=== PATIENT | female | born 1965 | race Caucasian/White ===

== ENCOUNTER 2017-09-16 06:51 | Observation (INO) | payer BC ==
[2017-09-12 15:30] VITALS: BP 123/82
[2017-09-12 15:41] LABS: BASOPHILS % (AUTO) 0.6 % (0.0-5.0); EOSINOPHILS % (AUTO) 1.4 % (0.0-8.0); HEMATOCRIT 42.5 % (36-48); LYMPHOCYTES % (AUTO) 34.5 % (21.0-51.0); MEAN CORPUSCULAR HEMOGLOBIN 30.2 pg (27.0-33.0); MEAN CORPUSCULAR HGB CONC 34.6 g/dL (32.0-36.0); MEAN CORPUSCULAR VOLUME 87.1 fL (79-99); MONOCYTES % (AUTO) 4.8 % (3.0-13.0); NEUTROPHILS % (AUTO) 58.7 % (40.0-77.0); PLATELET COUNT (AUTO) 262 K/uL (130-400); RED BLOOD CELL COUNT(AUTO) 4.88 MIL/uL (4.00-5.50); RED CELL DISTRIBUTION WIDTH 13.2 % (11.0-15.5); WHITE BLOOD COUNT (AUTO) 8.3 K/uL (4.8-10.8)
[2017-09-16] VITALS (23 sets, daily range): BP systolic 100–139; BP diastolic 54–77
[~2017-09-16] VITALS: Ht 171.4 cm; Wt 77.5 kg
[~2017-09-16 06:51] MED LIST: BENEFIBER PO; MULTIVITAMINS PO
[2017-09-16] MEDS: CEFAZOLIN SODIUM 1 GM VIAL IVP ONE ×2 (07:58→09:15)
[2017-09-16] MEDS ORDERED: WATER FOR INJECTION,STERILE 20 ML VIAL IJ ONE (08:00)
[2017-09-16] MEDS ORDERED: LACTATED RINGERS 1000ML 1,000 ML IV SCH (08:00)
[2017-09-16] MEDS ORDERED: LIDOCAINE PF 2% 5ML ABBOJECT ONE ×2 (08:02→10:13)
[2017-09-16] MEDS ORDERED: ONDANSETRON HCL 4 MG/2 ML VIAL ONE ×2 (08:02→10:12)
[2017-09-16] MEDS ORDERED: PROPOFOL 10 MG/ML 20ML VIAL IV ONE (08:02)
[2017-09-16] MEDS ORDERED: DEXAMETHASONE SOD PHOSPHATE 10MG/ML 1ML VIAL ONE ×2 (08:02→10:12)
[2017-09-16] MEDS ORDERED: FENTANYL CITRATE PF 50 MCG/1 ML 2ML VIAL ONE (08:03)
[2017-09-16] MEDS ORDERED: FENTANYL CITRATE PF 50 MCG/1 ML 5ML AMP IV ONE (09:23)
[2017-09-16] MEDS ORDERED: LIDOCAINE HCL MPF 1% 5ML VIAL ONE (10:12)
[2017-09-16] MEDS ORDERED: NEOSTIGMINE METHYLSULFATE 1MG/ML IV ONE (10:12)
[2017-09-16] MEDS ORDERED: ROCURONIUM BROMIDE 10MG/1ML 5ML VL ONE (10:13)
[2017-09-16] MEDS ORDERED: LIDOCAINE HCL 2% JELLY 5 ML ONE (10:13)
[2017-09-16] MEDS ORDERED: GLYCOPYRROLATE 0.2 MG/ML 5 ML VIAL ONE (10:13)
[2017-09-16] MEDS ORDERED: LIDOCAINE HCL 4% LTA SOL 4 ML VIAL ONE (10:13)
[2017-09-16] MEDS ORDERED: MEPERIDINE-PF 25 MG/ML SYG ONE (10:39)
[2017-09-16] MEDS ORDERED: SIMETHICONE 80 MG TAB.CHEW PO PRN ×3 (12:00→17:00)
[2017-09-16] MEDS ORDERED: IBUPROFEN 600 MG TABLET PO PRN (12:00)
[2017-09-16] MEDS ORDERED: MEPERIDINE-PF 75 MG/ML SYG IM PRN (12:00)
[2017-09-16] MEDS ORDERED: DOCUSATE SODIUM 100 MG CAP PO PRN ×2 (12:00→12:30)
[2017-09-16] MEDS ORDERED: BISACODYL 10 MG SUPP.RECT RC PRN ×2 (12:00→12:30)
[2017-09-16] MEDS ORDERED: DEXTROSE 5 %-0.45 % NACL 1,000 ML IV SCH (12:00)
[2017-09-16] MEDS ORDERED: PROMETHAZINE HCL 25 MG/ML 1ML AMPULE IM PRN ×3 (12:00→12:30)
[2017-09-16] MEDS ORDERED: ACETAMINOPHEN-CODEINE 300/30MG TAB PO PRN (12:30)
[2017-09-16] MEDS: DEXTROSE 5 %-0.45 % NACL 1,000 ML IV SCH ×2 (13:55→20:48)
[2017-09-16] MEDS ORDERED: PHENAZOPYRIDINE HCL 200 MG TABLET PO SCH (14:00)
[2017-09-16] MEDS: IBUPROFEN 600 MG TABLET PO PRN (16:48)
[2017-09-16] MEDS ORDERED: NITROFURANTOIN MONOHYD/M-CRYST 100 MG CAPSULE PO SCH (21:00)
[2017-09-17 00:12] VITALS: BP 134/73
[2017-09-17] MEDS: IBUPROFEN 600 MG TABLET PO PRN ×2 (02:40→08:51)
[2017-09-17 04:54] VITALS: BP 137/69
[2017-09-17] MEDS: DEXTROSE 5 %-0.45 % NACL 1,000 ML IV SCH ×2 (05:01→11:45)
[2017-09-17 05:33] LABS: MEAN CORPUSCULAR HEMOGLOBIN 30.4 pg (27.0-33.0); MEAN CORPUSCULAR HGB CONC 32.9 g/dL (32.0-36.0); MEAN CORPUSCULAR VOLUME 92.3 fL (79-99); PLATELET COUNT (AUTO) 234 K/uL (130-400); RED BLOOD CELL COUNT(AUTO) 4.55 MIL/uL (4.00-5.50); RED CELL DISTRIBUTION WIDTH 13.9 % (11.0-15.5); WHITE BLOOD COUNT (AUTO) 14.4 K/uL (4.8-10.8)
[2017-09-17 07:31] VITALS: BP 135/75
[2017-09-17 11:58] VITALS: BP 135/67
== END 2017-09-17 13:20 | disposition home or self-care (01) ==
LOC: DAH 06:51 → DAHIP 06:52 → DAH 06:52 → WSH 11:06
PROVIDERS: ADMIT Obstetrics & Gynecology; ATTEND Obstetrics & Gynecology
DX: D25.9 Leiomyoma of uterus, unspecified (principal); N95.0 Postmenopausal bleeding; K46.9 Unspecified abdominal hernia without obstruction or gangrene
CPT/HCPCS: 36415 ×3; 58262; 85025; 85027; 86850 ×2; 86900 ×2; 86901 ×2; 88305; 88307; 96372; A4218; A4351; A4510; A4600; A4606; G0378 ×30; J0690; J1100 ×2; J2001 ×2; J2175 ×2; J2405 ×2; J2550; J2704; J2710; J3010 ×2; J3490 ×3; J7120

== ENCOUNTER → 2024-03-16 | Outpatient (CLI) | payer BC ==
--- NOTE | 2024-03-16 10:05 | HMCIMG ---
MR[facility])CHOLANGIOPANCREATOG REASON: R74.8 Abnormal levels of other serum enzymes COMPARISON: None TECHNIQUE: Routine imaging protocol was performed in the coronal and axial plane with T1, proton density, T2 and gradient recalled sequences. Coronal fluid sensitive images were acquired followed by maximum pixel intensity projection technique, to generate to MRCP images. FINDINGS: There are no focal liver lesions. Intrahepatic biliary tree is nondistended. Gallbladder appears normal with no stones. Common duct caliber is normal. MRCP images appear unremarkable. There is a focal mass in the uncinate process of the pancreas. This measures 4.3 cm right to left, 4.0 cm anterior to posterior and 3.6 cm superior to inferior. Pancreatic duct does not appear dilated. The mass appears consistent with pancreatic carcinoma. A repeat CT or MR exam with contrast would be helpful for confirmation. Spleen and kidneys appear normal. The body and tail of the pancreas is unremarkable. There are no focal fluid collections. There is no free fluid. IMPRESSION: 1. Mass in the head and uncinate process of pancreas consistent with pancreatic carcinoma, a repeat CT or MRI exam with contrast would be helpful for confirmation. 2. Otherwise unremarkable MRI abdomen with MRCP sequences.
== END | disposition home or self-care (01) ==
LOC: RAH 07:31
PROVIDERS: ATTEND Internal Medicine Gastroenterology
DX: K76.0 Fatty (change of) liver, not elsewhere classified (principal); K21.9 Gastro-esophageal reflux disease without esophagitis; R74.8 Abnormal levels of other serum enzymes
CPT/HCPCS: 74181; S8037